=== PATIENT | male | born 1955 | race Caucasian/White ===

== ENCOUNTER 2016-07-06 08:28 | Observation (INO) | payer BC ==
[2016-07-02 18:47] LABS: HEMOGLOBIN 13.7 g/dL (13.6-17.8)
[2016-07-02 19:00] LABS: BUN (BLOOD UREA NITROGEN) 16 MG/DL (6-23); CALCIUM, SERUM 8.5 MG/DL (8.5-10.4); CHLORIDE, SERUM 107 MMOL/L (96-112); CO2 (CARBON DIOXIDE) 27 MMOL/L (24-34); CREATININE 1.13 MG/DL (0.70-1.30); GFR AFRICAN AMERICAN 82 ML/MIN (>=60); GFR NON AFRICAN AMERICAN 71 ML/MIN (>=60); GLUCOSE, SERUM 98 MG/DL (60-99); POTASSIUM, SERUM 3.9 MMOL/L (3.5-5.3); SODIUM, SERUM 142 MMOL/L (135-148)
--- NOTE | ~2016-07-06 | OP ---
Record Of Operation [place] [id number] [facility] [place]. [address] NAME: KITTY RECINOS : 59 STATUS : ADM Cedrick PAT#: [id number] AGE: 61 ADM/REG DATE : 07/06/16 MR#: [id number] REPORT SERV DATE: 07/07/16 DICTATED BY: ODALIS BLOUNT DATE: 07/06/16 REPORT STATUS : Draft TRANSCRIBED BY: MODL DATE: 07/06/16 DATE OF PROCEDURE: 07/06/2016 PREOPERATIVE DIAGNOSES: 1. Obstructive sleep apnea syndrome. 2. Chronic nasal obstruction. 3. Bilateral turbinate pressure. 4. Uvular and palatal redundancy. 5. Hypopharyngeal collapse. POSTOPERATIVE DIAGNOSES: 1. Obstructive sleep apnea syndrome. 2. Chronic nasal obstruction. 3. Bilateral turbinate pressure. 4. Uvular and palatal redundancy. 5. Hypopharyngeal collapse. PROCEDURES PERFORMED: 1. Hyoid suspension laryngoplasty. 2. Uvulopalatopharyngoplasty. 3. Bilateral inferior turbinoplasty. SURGEON: Odalis Blount M.D. ANESTHESIA: General. COMPLICATIONS: No complications. COUNTS: All counts correct following the procedure. BLOOD LOSS: 20 mL. PREOPERATIVE INFORMED CONSENT: We discussed the risks and benefits of the surgery to include, but not limited to bleeding, infection, possible persistent nasal obstruction, possible velopalatal incompetence, possible postop dysphagia which could be temporary or permanent, possible persistent postoperative sleep apnea requiring further more advanced sleep surgery versus repeat trial CPAP. He understands the risks and benefits of surgery. Consent is on the chart. PROCEDURE IN DETAIL: The patient was brought to the operating suite and placed on the operating table in supine position. General endotracheal anesthesia was initiated without incident. The patient's head and neck were cleaned and prepped in usual sterile fashion. Following this, a transverse incision was marked out over the level of the hyoid bone, injected with 5 mL of 1% lidocaine and 1:100,000 epinephrine for hemostasis and anesthesia. Following this, a transverse incision was performed using a 15 blade scalpel making incision down the underlying subcutaneous tissues. Following this, electrocautery was used to Record Of Operation [place] [address] [facility] [place]. [address] NAME: KITTY RECINOS : 59 STATUS : ADM Cedrick PAT#: [id number] AGE: 61 ADM/REG DATE : 07/06/16 MR#: [id number] REPORT SERV DATE: 07/07/16 DICTATED BY: ODALIS BLOUNT DATE: 07/06/16 REPORT STATUS : Draft TRANSCRIBED BY: NADER DATE: 07/06/16 perform a sharp dissection down through the platysmal layer. The midline fascia was divided and the strap muscles retracted laterally. The hyoid bone was then skeletonized superiorly and inferiorly along the hyoid bone from anterior corner to anterior corner exposing the anterior hyoid bone. Following this, superior aspect of the thyroid ala was cleaned out using a peanut pusher, and using a 0 Ethibond suture that was placed on either side of midline. Three sutures were placed between the superior aspect of the thyroid ala and the hyoid bone itself. Hyoid bone was then advanced over the superior aspect of the thyroid ala and sutured into position. Wound was copiously irrigated with sterile saline. Lincoln drain was placed in the midline of the wound. Wound was closed in layers with 3-0 Vicryl and 4-0 Prolene sutures followed by 2-0 silk for drain stitch, and Mastisol, Steri-Strips, a Telfa and a fluffed dressing. Attention was taken to oral cavity. DETAILS OF PROCEDURE: The patient was brought to the operative suite and placed on the operating table in the supine position. General endotracheal anesthesia was initiated without incident using the laser endotracheal tube. The patient's head and neck were cleaned, prepped and draped in the usual sterile fashion. Following this, moistened eye pads were placed on the patient's eyes. Attention was then taken to the oral cavity. A [place]-Kirill retractor was carefully inserted in the oral cavity and used to retract the tongue anteriorly and inferiorly in order to visualize the oropharynx. The soft palate, uvula, and anterior tonsillar pillars were injected with 1% Lidocaine with 1:100,000 epinephrine for hemostasis. Approximately 6.0 mL was used. Following this, a # 12-blade scalpel was used to make an incision down both anterior tonsillar pillars then across the palate to the level of the base of the uvula. Then, curved Metzenbaum scissors were used to transect the uvula at its base preserving the posterior mucosa. The mucosal flaps were advanced and closed using interrupted 3-0 Vicryl sutures. The oral cavity was irrigated with sterile saline and suctioned until clear. Attention was then taken to the turbinates. Both inferior turbinates underwent submucous resection using the Xomed turbinates shaver in a systematic fashion. Both inferior turbinates were infractured and both the medial and lateral surfaces were cauterized using the harmonic scalpel. Both inferior turbinates were outfractured. Breathe-Easy septal splints were placed on both sides of the nasal septum and sutured in the midline using 2-0 Nylon suture. Following this, a bite guard was placed on the upper teeth and a laser Dedo laryngoscope was carefully inserted in the oral cavity and advanced down the midline tongue down to the vallecula region. The patient was then suspended from the Strunk stand. Moistened towels were placed on the patient's face. The microscope was brought into the field and using the CO2 laser attachment with the micromanipulator attachment set at 7 oconnor, 200-millijoules, an inverted V-shaped area of the lingual tonsil tissue and base of tongue were systematically vaporized enlarging the base of tongue airway. Once adequate tissue had been removed, any bleeding sites were cauterized using laryngeal suction cautery. The patient was then taken out of suspension and the Dedo laryngoscope was removed. The patient was then awakened from anesthesia, extubated, and taken to the recovery room in stable condition. Record Of Operation [address] [address] NAME: KITTY RECINOS : 59 STATUS : ADM Cedrick PAT#: [id number] AGE: 61 ADM/REG DATE : 07/06/16 MR#: [id number] REPORT SERV DATE: 07/07/16 DICTATED BY: ODALIS BLOUNT DATE: 07/06/16 REPORT STATUS : Draft TRANSCRIBED BY: MODRaman DATE: 07/06/16 KENDRICK/NADER Odalis Blount M.D. / [id number] CC: Tri Whipple M.D. Kristine Wick [facility]
[~2016-07-06 08:28] MED LIST: CELEBREX2 PO; CENTRUM PO; DIL2TAB PO; DSS PO; FESO4 PO; GLUCOSAMINEPO PO; LOVENOX40 SC; MSCONT15 PO; NAP500 PO; NIACIN 500 PO; PEP20 PO; PR12.5 PO; PRILO PO; PRIN10 PO; ZOCOR40 PO
[2016-07-07] MEDS ORDERED: ZOFRAN ODT4 MG PO (08:25)
[2016-07-07] MEDS ORDERED: AMOXIL400 MG/5 M PO (08:26)
[2016-07-07] MEDS ORDERED: [UNRECOGNIZED DRUG - CODE] PO (08:27)
== END 2016-07-07 10:45 | disposition home or self-care (01) ==
LOC: SDC 08:28 → SDC/OF 13:34 → 4SO 17:33
PROVIDERS: Otolaryngology
PROC: 0CS30ZZ Reposition Soft Palate, Open Approach (ICD-10-PCS; 2016-07-06)
PROC: 09TL0ZZ Resection of Nasal Turbinate, Open Approach (ICD-10-PCS; 2016-07-06)
PROC: 0CS70ZZ Reposition Tongue, Open Approach (ICD-10-PCS; principal; 2016-07-06 10:15)
DX: G47.33 Obstructive sleep apnea (adult) (pediatric) (principal); J34.3 Hypertrophy of nasal turbinates; J34.89 Other specified disorders of nose and nasal sinuses; K21.9 Gastro-esophageal reflux disease without esophagitis; E78.00 Pure hypercholesterolemia, unspecified; M19.90 Unspecified osteoarthritis, unspecified site; I10 Essential (primary) hypertension; E78.5 Hyperlipidemia, unspecified; Z96.651 Presence of right artificial knee joint; Z88.0 Allergy status to penicillin; Z88.5 Allergy status to narcotic agent; Z79.899 Other long term (current) drug therapy; Z90.89 Acquired absence of other organs; Z98.890 Other specified postprocedural states; Z96.611 Presence of right artificial shoulder joint
CPT/HCPCS: 80048; 85014; 85018; 88304; 90686; 93005; 96374; 96376; A9270-GY; C1781; G0008; G0378; J0690; J2250; J2270; J2370; J2405; J2710; J3010